=== PATIENT | female | born 1990 | race Caucasian/White ===

== ENCOUNTER 2021-03-11 17:42 | Emergency (ER) | payer OTHER ==
[~2021-03-11 17:42] MED LIST: NORCO 5-325 TA1 EACH PO; ONDANSETRON ODT4 MG SL
[2021-03-11 19:46] LABS: BILIRUBIN NEGATIVE (NEGATIVE); BLOOD NEGATIVE Ery/uL (NEGATIVE); CLARITY CLEAR (CLEAR); COLOR YELLOW (YELLOW); GLUCOSE (U) NORMAL (NORMAL); LEUKOCYTES NEGATIVE Leu/uL (NEGATIVE); NITRITE NEGATIVE (NEGATIVE); PROTEIN NEGATIVE (NEGATIVE); UROBILINOGEN 0.2 mg/dL (0.2-1.0)
[2021-03-11 20:30] LABS: BASOPHIL 0.4 % (0-2); EOSINOPHIL 1.1 % (0-5); HCT 43.2 % (37.0-47.0); HGB 14.3 g/dl (12.5-16.0); LYMPHOCYTE 18.2 % (15-48); MCH 29.7 pg (25.0-31.0); MCHC 33.1 g/dL (32.0-36.0); MCV 89.8 fL (78.0-100.0); MONOCYTE 7.1 % (0-12); MPV 8.7 fL (6.0-9.5); NEUTROPHIL 72.5 % (41-80); NRBC 0; PLT 370 K/uL (150-400); RBC 4.81 M/uL (4.20-5.40); RDW 13.1 % (11.5-14.0); WBC 13.8 K/uL (4.0-10.5)
[2021-03-11 20:47] LABS: ALBUMIN 3.6 g/dL (3.4-5.0); BILIRUBIN - TOTAL 0.4 mg/dL (0.2-1.0); BUN/CREAT RATIO (CALC) 15.7 RATIO; CREATININE 0.7 mg/dL (0.51-0.95); GLOBULIN (CALCULATION) 3.8 g/dL; TOTAL PROTEIN 7.4 g/dL (6.4-8.2)
== END 2021-03-11 22:53 | disposition home or self-care (01) ==
LOC: FER 17:42
PROVIDERS: Nurse Practitioner Family
DX: R10.84 Generalized abdominal pain (principal); R11.0 Nausea
CPT/HCPCS: 36415; 80053; 81003; 85025; J1885; J2405; J7030; Q9967